=== PATIENT | male | born 1995 | race Caucasian/White ===

== ENCOUNTER 2023-11-27 09:20 | Outpatient (AMB) | payer OTHER, SELFPAY ==
--- NOTE | 2023-11-27 09:18 | AM.OFFWIN_ITS ---
Intake Vital Signs 11/27/23 09:30 Height 6 ft 3 in Weight 258 lb BMI 32.2 BP 150/100 H Blood Pressure Location Lt brachial Position Sitting Pulse 91 Pulse Source Pulse Oximeter Temp 97.2 F Temp Source Temporal Artery Scan Pulse Oximetry (%) 98 Oxygen Delivery Method Room Air Intake Visit Reasons: EST/rib pain from coughing Intake Note: pt is here today for rib pain from coughing started 1 week ago Patient Tobacco Use Status: Never used Tobacco Allergies No Known Allergies Allergy (Verified 11/27/23 09:32) Do you need a note to return to daycare/school/sports/work: Yes HPI HPI Comments History of Present Illness Details 28 male patient presents to [facility] with c/o Cough and left sided rib/chest pain. Symptoms started 1 week ago. [facility] [place] Social History Housing: House Housing Other:: Lives with mother, father, and brother who are supportive. Patient Tobacco Use Status: Never used Tobacco Second Hand Smoke Exposure: No service: No Current occupational status: employed Current occupation: [employer] Current occupational exposures/hazards: Yes (lead) Physical Exam Vital Signs: Last Vital Signs Temp 97.2 F 11/27/23 09:30 Pulse 91 11/27/23 09:30 BP 150/100 H 11/27/23 09:30 Pulse Ox 98 11/27/23 09:30 Oxygen Delivery Method Room Air 11/27/23 09:30 BMI result Body Mass Index 32.2 Const General: cooperative, comfortable and no acute distress HEENT Head: Yes normocephalic Ears: TM's normal bilaterally General nose exam: Normal nasal mucous membranes and turbinates present Face and sinus: Yes sinuses nontender Mouth: Normal oral and palatal mucosa present Throat: Yes posterior oropharynx normal Chest Chest palpation & inspection: normal inspection of the chest, normal palpation of entire chest wall, no crepitus, no masses, tenderness rib (left side chest tenderness) and No rash Resp Effort & Inspection: normal respiratory effort, no audible wheezes and Actively coughing Auscultation: clear to auscultation bilaterally Assessment & Plan Assessment & Plan (1) Cough in adult: Code(s): R05.9 - Cough, unspecified Plan: - Chest Xray - OTC cough medicine - Rest - Acetaminophen for pain relief - Heat pad (2) Contusion of rib on left side: Code(s): S20.212A - Contusion of left front wall of thorax, initial encounter Qualifiers: Encounter type: initial encounter Qualified Code(s): S20.212A - Contusion of left front wall of thorax, initial encounter Plan: - Chest Xray (NEGATIVE) - OTC cough medicine - Rest - Acetaminophen for pain relief - Heat pad Orders: Orders XR chest 2V Today R05.9 - Cough, unspecified, S20.212A - Contusion of left front wall of thorax, initial encounter Medications: New benzonatate 200 mg (2 x 100 mg) PO TID 30 caps 0RF cough R05.9 - Cough, unspecified acetaminophen ER 650 mg PO Q8H 20 tabs 0RF S20.212A - Contusion of left front wall of thorax, initial encounter azithromycin 500 mg PO DAILY 3 days 3 tabs 0RF R05.9 - Cough, unspecified Coding Level of Care Code Est Pt Level 3 (28264) Diagnoses Cough in adult R05.9 Contusion of rib on left side, initial encounter S20.212A Encounter type: initial encounter Time Spent (min) 15
[2023-11-27 09:30] VITALS: BP 150/100; PULSE 91; TEMP 36.2; O2SAT 98; BMI 32.2
== END 2023-11-27 11:16 | disposition home or self-care (01) ==
PROVIDERS: PCP Nurse Practitioner Family; Visit Provider Nurse Practitioner Family
DX: R05.9 Cough, unspecified (principal); S20.212A Contusion of left front wall of thorax, initial encounter
CPT/HCPCS: 99213

== ENCOUNTER 2023-11-27 10:04 | Outpatient (REF) | payer OTHER, SELFPAY ==
--- NOTE | ~2023-11-27 | XR_ITS ---
EXAMINATION: XR CHEST CLINICAL INFORMATION: Acute cough with left-sided chest pain COMPARISON: None available. TECHNIQUE: 2 views of the chest were obtained. FINDINGS: vascularity. LUNGS: Lungs are clear. No pneumothorax is seen. BONES: Bony skeleton is intact. XR/XR chest 2V IMPRESSION: Normal chest x-ray.
== END 2023-11-27 10:05 | disposition home or self-care (01) ==
LOC: HO.HMGCX 10:04
PROVIDERS: PCP Nurse Practitioner Family; Visit Provider Nurse Practitioner Family
DX: R05.9 Cough, unspecified (principal); S20.212D Contusion of left front wall of thorax, subsequent encounter
CPT/HCPCS: 71046

== ENCOUNTER 2024-09-27 14:25 | Outpatient (REF) | payer OTHER, SELFPAY ==
[2024-09-29 14:18] LABS: RPR Rapid Plasma Reagin NON-REACTIVE (NON-REACTIVE)
== END 2024-09-27 14:26 | disposition home or self-care (01) ==
LOC: HO.HMGCLDS 14:25
PROVIDERS: PCP Nurse Practitioner Family; Visit Provider Physician Assistant
DX: Z20.2 Contact with and (suspected) exposure to infections with a predominantly sexual mode of transmission (principal)
CPT/HCPCS: 36415; 81003; 86592

== ENCOUNTER 2024-09-27 14:25 | Outpatient (AMB) | payer OTHER, SELFPAY ==
[2024-09-27 14:31] VITALS: BP 120/84; PULSE 99; TEMP 36.8; O2SAT 99; BMI 32.0
--- NOTE | 2024-09-27 14:31 | MHC.OFFWIV ---
Intake Vital Signs 09/27/24 14:31 Height 6 ft 3 in Weight 256 lb BMI 32.0 BP 120/84 Blood Pressure Location Rt brachial Position Sitting Pulse 99 Pulse Source Pulse Oximeter Temp 98.2 F Temp Source Oral Pulse Oximetry (%) 99 Oxygen Delivery Method Room Air Intake Visit Reasons: EP STI/STD testing Intake Note: Pt is here today STD testing. Patient Tobacco Use Status: Never used Tobacco Allergies No Known Allergies Allergy (Verified 09/27/24 14:31) Do you need a note to return to daycare/school/sports/work: No HPI HPI Comments History of Present Illness Details History of Present Illness The patient is a 29-year-old male presenting with concerns regarding possible sexually transmitted infection exposure. The need for testing was prompted by the patient's girlfriend, who unspecifiedly tested positive for an STI, for which she was prescribed antibiotics. The patient denies experiencing any symptoms such as urethral discharge, dysuria, or febrile episodes. He reports that his girlfriend mentioned taking a medication, with advice to avoid alcohol during treatment. This raised his concern to ascertain his STI status, especially since the infection type was not disclosed to him. He mentions a prior testing encounter, possibly within the past year or two, during which blood work was conducted. No specific infections or diagnoses were communicated during that previous visit. The patient expresses commitment to a monogamous relationship with his girlfriend. There are no additional symptoms or historical signs that suggest prior or concurrent STI manifestations. Physical Exam General: Cooperative, healthy appearing, comfortable, no acute distress and well developed Orientation: Patient oriented x3 Limitations: Unable to walk Head: Normal to inspection Ears: Hearing grossly normal bilaterally Nose: Normal external nose present Face and sinus: Normal facial exam Eyes: Appearance normal, both eyes and all related structures Neck: Normal visual inspection and Yes full ROM Respiratory: Normal respiratory effort and able to speak in complete sentences. Skin: No rashes or lesions noted Neuro: Patient oriented x3 Extremities: Normal to inspection [facility] Social History Housing: House Housing Other:: Lives with mother, father, and brother who are supportive. Patient Tobacco Use Status: Never used Tobacco Second Hand Smoke Exposure: No service: No Current occupational status: employed Current occupation: [id number] Current occupational exposures/hazards: Yes (lead) Review of Systems Const All systems reviewed & are unremarkable except as noted in HPI and below Physical Exam Vital Signs: Last Vital Signs Temp 98.2 F 09/27/24 14:31 Pulse 99 09/27/24 14:31 BP 120/84 09/27/24 14:31 Pulse Ox 99 09/27/24 14:31 Oxygen Delivery Method Room Air 09/27/24 14:31 BMI result Body Mass Index 32.0 Assessment & Plan Assessment & Plan (1) Possible exposure to STI: Code(s): Z20.2 - Contact with and (suspected) exposure to infections with a predominantly sexual mode of transmission Plan: Plan 1. Sexually Transmitted Infection STI Exposure: - A syphilis test has been ordered. CT/NG has been sent. - In the event of positive results, the patient will be informed, and appropriate antibiotic therapy will be initiated to target the specific infection. - The patient has been advised to abstain from sexual activity with his partner until testing is cleared and both parties are confirmed negative or adequately treated. - Further follow-up may be recommended based on the results of the STI tests. - Patient understands if he wants HIV testing, he needs to see his PCP and request the test. - UA negative for infection, no indication for urine culture. Patient was informed and verbally consented to the use of an ambient scribe for clinic note documentation during this visit. Orders: Orders AMB Urinalysis Automated Today Z13.9 - Encounter for screening, unspecified RPR Monitor reflex titer Today Z20.2 - Contact with and (suspected) exposure to infections with a predominantly sexual mode of transmission CT NG by PCR Today Z20.2 - Contact with and (suspected) exposure to infections with a predominantly sexual mode of transmission Coding Level of Care Code Est Pt Level 3 (20336) Diagnoses Possible exposure to STI Z20.2
== END 2024-09-27 15:12 | disposition home or self-care (01) ==
PROVIDERS: PCP Nurse Practitioner Family; Visit Provider Physician Assistant
DX: Z13.9 Encounter for screening, unspecified (principal); Z20.2 Contact with and (suspected) exposure to infections with a predominantly sexual mode of transmission

== ENCOUNTER 2024-09-27 14:52 | Outpatient (REF) | payer OTHER, SELFPAY ==
[2024-09-28 02:51] LABS: CT PCR NOT DETECTED (Not Detect.); NG PCR NOT DETECTED (Not Detect.)
== END 2024-09-27 14:53 | disposition home or self-care (01) ==
LOC: HO.LAB 14:52
PROVIDERS: Visit Provider Physician Assistant
DX: Z20.2 Contact with and (suspected) exposure to infections with a predominantly sexual mode of transmission (principal)
CPT/HCPCS: 87491; 87591